=== PATIENT | female | born 1950 ===

== ENCOUNTER 2021-11-28 08:09 | Outpatient (CLI) | payer OTHER | END 2021-11-28 08:14 | disposition home or self-care (01) | LOC: SONOGRAMA 08:09 | PROVIDERS: ATTEND Pathology Anatomic Pathology & Clinical Pathology | DX: D34 Benign neoplasm of thyroid gland (principal); E04.8 Other specified nontoxic goiter ==

== ENCOUNTER 2022-08-14 10:41 | Outpatient (CLI) | payer OTHER | END 2022-08-14 10:43 | disposition home or self-care (01) | LOC: SONOGRAMA 10:41 | PROVIDERS: ATTEND Pathology Anatomic Pathology & Clinical Pathology | DX: C83.38 Diffuse large B-cell lymphoma, lymph nodes of multiple sites (principal) ==